=== PATIENT | female | born 2005 | race Caucasian/White ===

== ENCOUNTER 2023-04-25 16:56 | Emergency (ER) | payer OTHER ==
[2023-04-25 17:03] VITALS: BP 146/87; PULSE 98; RESP 16; TEMP 98.2; BMI 29.2
== END 2023-04-25 19:09 | disposition home or self-care (01) ==
LOC: JERFT 16:56
DX: R20.0 Anesthesia of skin (principal); F44.6 Conversion disorder with sensory symptom or deficit; Z00.01 Encounter for general adult medical examination with abnormal findings
CPT/HCPCS: 99282-25

== ENCOUNTER 2023-07-17 23:07 | Emergency (ER) | payer OTHER ==
[2023-07-17 23:19] VITALS: BP 148/86; PULSE 102; RESP 19; TEMP 98.1; BMI 31.1
[2023-07-18 00:05] LABS: POTASSIUM 4.1 mmol/L (3.5-5.1)
[2023-07-18 00:07] LABS: BLOOD UREA NITROGEN 8.1 mg/dL (7-18)
[2023-07-18 00:12] LABS: CREATININE 0.8 mg/dL (0.55-1.3)
== END 2023-07-18 00:55 | disposition home or self-care (01) ==
LOC: JER 23:07
DX: R25.1 Tremor, unspecified (principal)
CPT/HCPCS: 36415; 80048; 83735; 93005; 93010; 99284-25